=== PATIENT | male | born 1940 | race Caucasian/White ===

== ENCOUNTER → 2017-02-12 | Day surgery (SDC) | payer MEDICARE ==
[~2017-02-12] MED LIST: ATROPINE SULFATE 1% OPHT SOLN 2 ML BTL ONE; DEXAMETHASONE SOD PHOS 4 MG/ML VIAL ONE; EPINEPHrine HCL (1:1000) 1 MG/ML VIAL ONE; FLURBIPROFEN 0.03% OPHT SOLN 2.5 ML BTL ONE; HYALURONIDASE/LIDOCAINE/BUPIVACAINE 11 ML SYR TL ONE; LACTATED RINGER'S 1000 ML INJ 1,000 ML ONE; NEOMYCIN/POLYMYXIN/DEXAMETHASONE OPTH OINT 3.5 GM TUBE ONE; ONDANSETRON HCL 4 MG/2 ML VIAL IV PUSH ONE; PHENYLEPHRINE HCL 2.5 % OPTH SOLN 15 ML BTL ONE; PROPOFOL 100 MG/10 ML INJ IV ONE; SODIUM CHLORIDE 0.9% INJ 10 ML ONE; TETRACAINE 0.5% OPTH SOLN 4 ML BTL ONE; TROPICAMIDE 1% OPHT SOLN 15 ML BTL ONE; ceFAZolin INJ 1,000 MG VIAL ONE
--- NOTE | 2017-02-25 19:42 | MP ---
cc: HOMAR ISSA MD DATE OF SURGERY: 02/12/2017. PREOPERATIVE DIAGNOSIS: Previous retinal detachment and epiretinal membrane, right eye. POSTOPERATIVE DIAGNOSIS: Previous retinal detachment and epiretinal membrane, right eye. OPERATION: Pars plana vitrectomy, membrane peeling, silicone oil removal, right eye. SURGEON: Homar Issa MD ANESTHESIA: MAC. COMPLICATIONS: None. DESCRIPTION OF THE PROCEDURE IN DETAIL: After informed consent was obtained, the patient brought to the operating room, placed, under brief anesthesia of propofol, prepped and draped in the usual sterile fashion. A wire eyelid speculum was placed in the patient's right eye. A 23-gauge vitrectomy cannulas were then placed, one lower temporal, supratemporal and supranasal quadrants 3 mm posterior to the corneal scleral limbus. Infusion cannula was placed lower temporally. The patient had a previous vitrectomy with some of the residual vitreous, at the vitreous space was excised using the vitreous cutter. Posteriorly either the internal limiting membrane or an epiretinal membrane was stained with ICG dye over the surface of the macula. This was then carefully peeled from around the macula hole. Careful indirect ophthalmoscopy with scleral depression was then performed. No peripheral breaks were noted. A complete air-fluid was then performed. The silicone oil gas then used to fill the vitreous cavity. The three vitrectomy cannulas were then removed. Each site was closed with interrupted 7-0 Vicryl suture. Subconjunctival injections of Dexamethasone and Ancef were placed. Atropine drops. Maxitrol ointment and patch and shield were then applied. The patient tolerated the procedure well. There were no complications. He will followup tomorrow in our [place] office. ADDENDUM: There was a dense epiretinal membrane on the surface of the macula, which was carefully peeled off the surface of the macula and removed. The same was then done for the internal limiting membrane. Homar Issa MD TAB/JCC /11:20 AM /7:39 PM
== END | disposition home or self-care (01) ==
LOC: ESDC 12:58
PROVIDERS: ATTEND Ophthalmology Retina Specialist
DX: H33.011 Retinal detachment with single break, right eye (principal)
CPT/HCPCS: 00145; 67108; J0171; J0690; J1100; J2405; J3010; J7120

== ENCOUNTER → 2017-06-08 | Day surgery (SDC) | payer MEDICARE ==
[~2017-06-08] MED LIST changes: +ATROPINE SULFATE 1 MG/10 ML SYRINGE ONE; -ATROPINE SULFATE 1% OPHT SOLN 2 ML BTL ONE; +ATROPINE SULFATE 1% OPHT SOLN 5 ML BTL ONE; +BACITRACIN IM FOR SOLN 50,000 UNIT VIAL ONE; -ONDANSETRON HCL 4 MG/2 ML VIAL IV PUSH ONE; -PROPOFOL 100 MG/10 ML INJ IV ONE; +TETRACAINE 0.5% OPTH SOLN 15 ML BTL ONE; -TETRACAINE 0.5% OPTH SOLN 4 ML BTL ONE; +TRIAMCINOLONE ACETONIDE 40 MG/ML VIAL ONE
--- NOTE | 2017-07-17 07:25 | TN ---
cc: HOMAR ISSA MD DATE OF SURGERY 06/08/2017 DATE OF 1940 PREOPERATIVE DIAGNOSIS Retinal detachment left eye. POSTOPERATIVE DIAGNOSIS Retinal detachment left eye. PROCEDURE Pars plana vitrectomy, membrane pealing, endolaser, silicone oil placement left eye. ANESTHESIA MAC SURGEON Homar Issa MD COMPLICATIONS None PROCEDURE After informed consent was obtained, the patient was given retrobulbar anesthesia in the preoperative area. He was then brought to the operating room, prepared and draped in the usual sterile fashion. A wire lid speculum was placed in the patient's left eye. A 270 degree conjunctival peritomy was then performed using 0.12 forceps and Arden scissors. Excellent hemostasis was obtained with Bipolar cautery. Scleral frazier were then made 3 mm posterior to the corneoscleral limbus in the lower temporal, supratemporal and superonasal quadrants. A 6-0 Vicryl mattress suture was placed in the right lower temporal dee. 23-gauge vitrectomy cannulas were then placed through these sites and an infusion cannula was placed lower temporally. There had been a previous vitrectomy performed. 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 A pick and intraocular forceps were used to peal these membranes. A complete air-fluid exchange was performed and eventual endolaser was placed inferiorly. Silicone oil was then used to fill the vitreous cavity. The two superior vitrectomy cannulas were removed and each site was closed with an interrupted 6-0 Vicryl suture. The infusion cannula was then removed and the mattress suture was tied up permanently. The conjunctivae were repaired using two interrupted 7-0 Vicryl sutures. Subconjunctival injections of dexamethasone and Ancef were placed. Atropine drops, Maxitrol and a patch and shield were then applied. The patient tolerated the procedure well. There were no complications. [facility]. Homar Issa MD TAB/DJL /6:37 PM /9:52 AM
== END | disposition home or self-care (01) ==
LOC: ESDC 06:10
PROVIDERS: ATTEND Ophthalmology Retina Specialist
DX: H33.022 Retinal detachment with multiple breaks, left eye (principal)
CPT/HCPCS: 00145; 67108; C1814; J0171; J0690; J1100; J3301; J7120; J0461

== ENCOUNTER → 2018-01-16 | Day surgery (SDC) | payer MEDICARE ==
[~2018-01-16] MED LIST changes: -ATROPINE SULFATE 1 MG/10 ML SYRINGE ONE; +ATROPINE SULFATE 1% OPHT SOLN 2 ML BTL ONE; -BACITRACIN IM FOR SOLN 50,000 UNIT VIAL ONE; -HYALURONIDASE/LIDOCAINE/BUPIVACAINE 11 ML SYR TL ONE; +HYALURONIDASE/LIDOCAINE/BUPIVACAINE 5 ML SYR ONE; -PHENYLEPHRINE HCL 2.5 % OPTH SOLN 15 ML BTL ONE; +PHENYLEPHRINE HCL 2.5% OPTH SOLN 2 ML BTL ONE; +PROPOFOL 200 MG/20 ML AMP IV ONE; -TETRACAINE 0.5% OPTH SOLN 15 ML BTL ONE; +TETRACAINE 0.5% OPTH SOLN 4 ML BTL ONE
--- NOTE | 2018-01-21 10:03 | MP ---
cc: Homar Pearson MD DATE OF OPERATION: 01/16/2018 PREOPERATIVE DIAGNOSIS: Previous retinal detachment and epiretinal membrane, left eye. POSTOPERATIVE DIAGNOSIS: Previous retinal detachment and epiretinal membrane, left eye. PROCEDURE PERFORMED: Pars plana vitrectomy, membrane peeling, silicone oil removal, left eye. ANESTHESIA: MAC. SURGEON: Homar Pearson MD COMPLICATIONS: None. PROCEDURE IN DETAIL After informed consent was obtained, the patient brought to the operating room, placed, under brief anesthesia of propofol, prepped and draped in the usual sterile fashion. A wire eyelid speculum was placed in the patients left eye. 23 gauge vitrectomy cannulas were then placed, one lower temporal, supratemporal and supranasal quadrants 3 mm posterior to the corneal scleral limbus. Infusion cannula was placed lower temporally. The patient had a previous vitrectomy with some of the residual vitreous, at the vitreous space was excised using the vitreous cutter. Posteriorly either the internal limiting membrane or an epiretinal membrane was stained with ICG dye over the surface of the macula. This was then carefully peeled from around the macula hole. Careful indirect ophthalmoscopy with scleral depression was then performed. No peripheral breaks were noted. A complete air-fluid was then performed. The silicone oil gas then used to fill the vitreous cavity. The three vitrectomy cannulas were then removed. Each site was closed with interrupted 7-0 Vicryl suture. Subconjunctival injections of Dexamethasone and Ancef were placed. Atropine drops. Maxitrol ointment and patch and shield were then applied. The patient tolerated the procedure well. There were no complications. ADDENDUM: The patient had a dense epiretinal membrane on the surface of the macula which was carefully peeled with intraocular forceps and removed. Same was then done for the internal limiting membrane. The retina remained attached throughout these maneuvers. He will followup tomorrow in our [facility] office. Homar Pearson MD TAB/TL , 11:43 AM , 12:01 PM
== END | disposition home or self-care (01) ==
LOC: ESDC 11:26
PROVIDERS: ATTEND Ophthalmology Retina Specialist
DX: H35.372 Puckering of macula, left eye (principal)
CPT/HCPCS: 00145; 67041; J0171; J0690; J1100; J3301; J7120